=== PATIENT | female | born 1985 | race Caucasian/White ===

== ENCOUNTER 2016-08-08 12:05 | Emergency (ER) | payer MEDICAID ==
[~2016-08-08] VITALS: Wt 72.5 kg
[~2016-08-08 12:05] MED LIST: IBUP800T25 PO; PERCOCET PO; PREN-39 PO
--- NOTE | 2016-08-08 12:55 | ERD ---
ER Documentation Chief Complaint Date/Time DATE: 08/08/16 TIME: 12:00 Chief Complaint right breast pain and redness with drainage since yesterday HPI 31 y/o female presents to ED for right breast pain/redness that started yesterday. Reports that she is still breast-feeding her 1-year-old baby. Denies headache, loss of consciousness, dizziness, blurry vision, changes in vision, photophobia, facial pain, ear pain, throat pain, difficulty swallowing, neck pain, shoulder pain, chest pain, cough, hemoptysis, abdominal pain, back pain, loss of appetite, nausea, vomiting, hematochezia, diarrhea, constipation, urinary symptoms, , the possibility of being , bladder and bowel incontinences, extremity weakness, extremity tenderness, numbness or tingling sensation, difficulty walking, recent travel, recent exposure to illness, recent antibiotic use in the last 3 months, fever, chills. Allergy: NKA PMH: Denies Family medical history: Denies AO LMP: "A month ago." Medications: Tylenol, vitamins. Surgery: Primary Social History: Does not work at this time. Denies smoking, use of alcohol, use of illegal drugs. ROS All systems reviewed and are negative except as per history of present illness. Medications Home Meds Active Scripts Oxycodone Hcl/Acetaminophen (Percocet) 1 Tab Tab, 2 TAB PO Q4H Y for PAIN LEVEL 6-10, #30 TAB 0 Refills Prov:MAYA BURGESS MD 07/16/15 Ibuprofen* (Ibuprofen*) 800 Mg Tab, 800 MG PO Q8, #20 TAB 0 Refills Prov:MAYA BURGESS MD 07/16/15 Reported Medications Vits W-Ca,Fe,Fa(<1MG) ( Vitamins) 1 Tab Tablet, 1 TAB PO DAILY for 7 Days, TAB 06/15/15 Allergies Allergies: Coded Allergies: No Known Allergy (Verified Allergy, Unknown, 03/01/07) PMhx/Soc History of Surgery: No Anesthesia Reaction: No Hx Neurological Disorder: No Hx Respiratory Disorders: No Hx Cardiac Disorders: No Hx Psychiatric Problems: No Hx Miscellaneous Medical Probl: No Hx Alcohol Use: No Hx Substance Use: No Hx Tobacco Use: No Physical Exam Vitals Vital Signs Date Time Temp Pulse Resp B/P Pulse Ox O2 Delivery O2 Flow Rate FiO2 08/08/16 12:07 98.4 92 18 125/65 99 Physical Exam CONSTITUTIONAL: Well-appearing; well-nourished; in no apparent distress. HEAD: Normocephalic; atraumatic. EYES: Conjunctiva clear, sclera non-icteric, EOM intact. PERRL Ears: Hearing intact. EACs clear, TMs non-bulging, non-inflamed, translucent & mobile, ossicles normal appearance, No obstructions, no erythema, no discharges Nose: No obstructions. No polyps. No external lesions. Mucosa non-inflamed. No external lesions, septum and turbinates normal. No rhinorrhea. No discharges. Frontal sinus is non-tender to palpation. Maxillary sinus is non-tender to palpation. MOUTH: Moist mucous membranes, no lesion, no obstructions, no vesicles, no thrush, patent airway Throat: Uvula in midline. Right tonsil is +1 with no erythema, no exudate. Left tonsil is +1 with no erythema, no exudate. Tolerating secretions well. Good gag reflex. Patent airway. Neck: Supple, without lesions, bruits, or adenopathy. No mass. Thyroid non- enlarged and non-tender to palpation. CHEST: Symmetrical chest. Respirations even and not labored. No retractions noted. Breast: Physical examination was done with Nathalia Sheth PA-C. Left breast is unremarkable. Right breast has visible mild redness near 10:00 area with an induration of 1 cm. Intact. No bleeding. No discharges. CARDIOVASCULAR: Normal S1, S2. RRR. No murmurs, gallops. RESPIRATORY: Normal chest excursion with respiration; breath sounds clear and equal bilaterally; no wheezes, rhonchi, or rales. Breathing even and unlabored. Speaking in clear, full, and complete sentences w/ ease. ABDOMEN: Normal bowel sounds normal. Soft, round, non-distended, non-guarding, no tenderness, no rebound, no organomegaly, no masses, no pulsating abdominal mass. No hernia. No peritoneal signs. : No CVA tenderness. BACK: Symmetrical shoulder. Spine is midline without deformity, tenderness. No evidence of trauma or deformity. PELVIS: Stable pelvis. No evidence of trauma or deformity. MUSCULOSKELETAL: Normal gait and station. No misalignment, asymmetry, crepitation, defects, tenderness, masses, effusions, decreased range of motion, instability, atrophy or abnormal strength or tone in the head, neck, spine, ribs , pelvis or extremities. No calf tenderness. NEUROVASCULAR: Distal pulses are present. Pedal pulse are present, equal, and normal. Capillary refills are < 2 seconds. NEUROLOGIC: Alert and oriented x4. Speaks full and clear sentences. Cranial Nerves II-XII normal. Sensation to pain, touch, and proprioception normal. Grossly unremarkable. No neurologic deficits. Romberg test is negative. PSYCHOLOGICAL: The patients mood and manner are appropriate. No hallucinations , delusions. Not SI. Not HI. Has the capacity to decide for self SKIN: Normal for age and ethnicity; warm; dry; good turgor; no apparent lesions or exudates. No rashes, hives, discoloration. Intact. Procedures/MDM Examination: Unremarkable examination except breast: Physical examination was done with Nathalia Sheth PA-C. Left breast is unremarkable. Right breast has visible mild redness near 10:00 area with an induration of 1 cm. Intact. No bleeding. No discharges. Disease process, medical treatment was explained to the patient. She verbalized understanding and agreed with the diagnostic tests, medical treatment, and follow-up care. Radiology: Ultrasound of the breast: No sonographic abnormality identified to correspond to the right breast swelling. POC urine : Negative Re-evaluation: Denies pain. Consultation: None Differential diagnosis: Mastitis versus breast mass versus fibrocystic breast disease. Medical decision makin31 y/o female presents to ED for right breast pain/ redness that started yesterday. Reports that she is still breast-feeding her 1- year-old baby. Patient's complaint, patient's presentation, my physical findings, diagnostic test result are consistent with my final diagnosis of mastitis. Medications prescribed are the following: Keflex, Bactrim, Motrin/Tylenol for pain or fever. Patient and family member are made aware of the side effects and adverse reactions of the medications prescribed. Instructed on when to seek emergent and medical attention in case allergic/anaphylactic reactions or severe side effects and or adverse reactions to medications. Patient and family member verbalized understanding. Patient instructed Instructed to follow-up with his PCP in 24-48 hours. Instructed to Call 911 for chest pain, shortness of breath. Advised to come back here in ED as soon as possible for severity of symptoms which includes but not limited to: any new symptoms; shortness of breath/difficulty of breathing; cardiovascular changes; severe gastrointestinal symptoms; signs and symptoms of bleeding and or infection; signs of compartment syndrome/neurovascular changes; neurological changes/deficits. Patient and family member verbalized understanding. Upon discharge, patient is alert and oriented x 4, speaks full and clear sentences, denies pain, has no neurological deficits, has no neurovascular deficits, difficulty of breathing. Breathing even and unlabored. Lung sounds are clear to auscultation. Not in distress. Appears comfortable. Ambulatory with steady gait. Appears satisfied with care provided here in ED. Departure Diagnosis: Primary Impression: Mastitis Additional Instructions: Follow-up with PCP in 24-48 hours. NICOLAS ALMAZAN Aug 08, 2016 12:55
--- NOTE | 2016-08-08 13:51 | RADRPT ---
PROCEDURE: Bilateral breast ultrasound. CLINICAL INDICATION: Right breast swelling TECHNIQUE: Bilateral whole breast and axillary sonography was performed. COMPARISON: None FINDINGS: No solid or suspicious masses. No areas of architectural distortion. No malignant adenopathy. No dominant cysts are present. IMPRESSION: No sonographic abnormality identified to correspond to the right breast swelling. If the patient's symptoms persist, bilateral mammogram can be performed BI-RADS 1: NEGATIVE RPTAT: RICNH .Jose De Jesus Key MD, MD Date Time Electronically viewed and signed by .Jose De Jesus Key MD, MD on 08/08/2016 13:51 .M/
[2016-08-08] MEDS ORDERED: BACTDS PO (14:21)
[2016-08-08] MEDS ORDERED: IBUP-1542 PO (14:21)
[2016-08-08] MEDS ORDERED: CEPH-443 PO (14:21)
[2016-08-08] MEDS ORDERED: ACET500C5 PO (14:22)
== END 2016-08-08 14:36 | disposition home or self-care (01) ==
LOC: FTE 12:05
DX: N61.0 Mastitis without abscess (principal)
CPT/HCPCS: 76642